=== PATIENT | male | born 1990 | race Caucasian/White ===

== ENCOUNTER 2020-06-10 11:31 | Day surgery (SDC) | payer BC, SELFPAY ==
[2020-05-07 09:37] VITALS: BMI 25.0
--- NOTE | 2020-05-08 09:22 | HO.ANESPROP2 ---
HPI - Anesthesia Eval Consult details Narrative: 30yo M for colonoscopy [facility] Past Medical History Medical History (Updated 05/12/20 @ 15:51 by Peace Rodriguez) Anxiety Depression H/O ventricular septal defect Murmur Surgical History Surgical History (Updated 05/07/20 @ 09:41 by Ana Quintero) History of esophagogastroduodenoscopy (EGD) Social History Social History Smoking Status: Never smoker Narrative Narrative: VSD = small membranous. No change from childhood per ECHO EGD with MAC 11/30/19 Meds Allergies Allergy/AdvReac Type Severity Reaction Status Date / Time No Known Allergies Allergy Verified 05/07/20 09:45 Home Medications Medication Instructions Recorded Confirmed Type citalopram 1 tab PO DAILY 05/07/20 05/07/20 History loratadine [Claritin] 10 mg PO DAILY 05/07/20 05/07/20 History Exam Exam Date and Time: May 08, 2020 0922 Height,Weight and Vital Signs: Height 6 ft Weight 83.915 kg Pertinent Lab Results Pertinent Lab Results: ECHO 04/2018 = LVEF 55-60%, small membranous VSD, no valve pathology Assessment and Plan Assessment Anesthesia Assessment: Chart Reviewed
--- NOTE | 2020-06-09 15:13 | HO.ANESPROP2 ---
Documented by User: Peace Rodriguez 06/09/20 15:15 HPI - Anesthesia Eval Consult details Narrative: 30yo M for [facility]oscopy [facility] Past Medical History Medical History (Updated 05/12/20 @ 15:51 by Peace Rodriguez) Anxiety Depression H/O ventricular septal defect Murmur Family History Family History (Updated 06/06/20 @ 09:13 by Stacey Cabrera, RMA, [employer]) Father Gastrointestinal ulcer Mother No problems noted. Son No problems noted. Surgical History Surgical History (Updated 05/07/20 @ 09:41 by Ana Quintero) History of esophagogastroduodenoscopy (EGD) Social History Social History Smoking Status: Never smoker Use of substances other than those prescribed or required for medical reasons: No Have you been hit, kicked, punched, or otherwise hurt by someone within the past year? If so, by whom?: No Advance Directives: No (unknown) Advance Directives Information Provided: No Recently lost weight without trying: No Meds Allergies Allergy/AdvReac Type Severity Reaction Status Date / Time No Known Allergies Allergy Verified 06/06/20 09:11 Home Medications Medication Instructions Recorded Confirmed Type citalopram 1 tab PO DAILY 05/07/20 05/07/20 History loratadine [Claritin] 10 mg PO DAILY 05/07/20 05/07/20 History Exam Exam Date and Time: June 09, 2020 1513 Height,Weight and Vital Signs: Height 6 ft Weight 83.915 kg Pertinent Lab Results Pertinent Lab Results: Laboratory Tests 04/22/20 04/22/20 08:45 08:45 WBC 4.2 L Hgb 15.1 Hct 44.9 Plt Count 308 Sodium 140 Potassium 4.7 Chloride 104 BUN 17 H Creatinine 1.08 Assessment and Plan Assessment Anesthesia Assessment: Chart Reviewed Documented by User: Vinod Gardner 06/10/20 12:00 [facility] Past Medical History Medical History (Updated 05/12/20 @ 15:51 by Peace Rodriguez) Anxiety Depression H/O ventricular septal defect Murmur Family History Family History (Updated 06/06/20 @ 09:13 by Stacey Cabrera, RMA, [employer]) Father Gastrointestinal ulcer Mother No problems noted. Son No problems noted. Surgical History Surgical History (Updated 05/07/20 @ 09:41 by Ana Quintero) History of esophagogastroduodenoscopy (EGD) Social History Social History Smoking Status: Never smoker Use of substances other than those prescribed or required for medical reasons: No Have you been hit, kicked, punched, or otherwise hurt by someone within the past year? If so, by whom?: No Advance Directives: No (unknown) Advance Directives Information Provided: No Recently lost weight without trying: No Meds Allergies Allergy/AdvReac Type Severity Reaction Status Date / Time No Known Allergies Allergy Verified 06/06/20 09:11 Home Medications Medication Instructions Recorded Confirmed Type citalopram 1 tab PO DAILY 05/07/20 05/07/20 History loratadine [Claritin] 10 mg PO DAILY 05/07/20 05/07/20 History Exam Airway Mallampati Class: II TM Dist: >3cm Neck ROM: Full Loose/Missing/Broken Teeth: No Heart: [id number] Lungs: ct b/l Assessment and Plan Assessment Anesthesia Assessment: Anesthesia Plan Discussed, PAT Visit and Chart Reviewed Final Anesthetic Review NPO: Yes ASA Class: II Final Preanesthetic Review: No Changes in Pt Med Stat, Meds/Allgs Chart Reviewed, Consent Obtained/Reviewed and Anes Risks/Benef Reviewed Patient Risk: Low Procedure Risk: Low Assessment/Block/Sedation in SS: Assess/Block/Sedation- Anesthetic Plan Anesthetic Plan: MAC: Disposition: Standard PACU
[2020-06-10 11:53] VITALS: BP 121/72; PULSE 70; RESP 20; TEMP 36.7; O2SAT 98; BMI 25.1
--- NOTE | 2020-06-10 11:55 | MHC.SHP ---
Pre-Procedural Eval Section A The patient is an INPATIENT: No The History & Physical has been completed within 30 days and I have reviewed it.: No Section B Chief Complaint: chronic diarrhea Details of Present Illness: diarrhea alternating with constipation Relevant Family History (Specify if Yes): No Relevant Social History: None Present Medications: see Short Stay Collaborative assessment Medical History: Significant History ( VSD. GERD. Depression. Anxiety. Uvula swelling. Seasonal allergies. ) History of Previous Operations: Relevant previous surgery/procedure and date(s) (EGD in 11/25) Allergies: Allergies Allergy/AdvReac Type Severity Reaction Status Date / Time No Known Allergies Allergy Verified 06/06/20 09:11 Review of Systems Sugical H&P ROS: Negative: Constitution, Cardiovascular and Respiratory and Yes, Specify: Gastrointestinal (diarrhea and constipation) Exam Surgical H&P Exam: Normal: Heart, Normal: Lungs, Normal: Extremities and Normal: Abdomen Plan Diagnosis/Plan: Unchanged Patient has been examined and remains a candidate for the planned procedure
[2020-06-10] MEDS: Lactated Ringers 1,000 ML 100 ML IVCONT (12:05)
[2020-06-10 12:48] VITALS: BP 99/55; PULSE 75; RESP 12; TEMP 36.4; O2SAT 97
[2020-06-10 13:03] VITALS: BP 99/54; PULSE 71; RESP 16; O2SAT 95
[2020-06-10 13:18] VITALS: BP 101/59; PULSE 64; RESP 16; O2SAT 97
[2020-06-10 13:33] VITALS: BP 104/62; PULSE 63; RESP 16; O2SAT 97
--- NOTE | 2020-06-10 14:07 | HO.POSTANES ---
Post Anesthesia Evaluation Post Anesthesia Evaluation Vital Signs: Vital Signs Temp Pulse Resp BP Pulse Ox 06/10/20 13:33 97.6 F 63 16 104/62 97 06/10/20 13:18 64 16 101/59 L 97 06/10/20 13:03 71 16 99/54 L 95 06/10/20 12:48 97.6 F 75 12 99/55 L 97 06/10/20 11:53 98.1 F 70 20 121/72 98 Anesthesia: Monitored Mental Status: Awake Pain Control: Satisfactory Nausea/Vomiting: None Hydration: Adequate Anesthesia-Related Issues: No Anes. Related Issues
--- NOTE | 2020-06-10 17:48 | W.PM.OPN ---
Operative Note Operative Note Narrative: Date of procedure: 06/10/20 Post-op diagnosis: other (Diverticulosis, hemorrhoids) Procedure: COLONOSCOPY TILL CECUM WITH BIOPSIES Consent: Indications for the procedure and potential complications of bleeding, perforation, reaction to medications and missed diagnosis were discussed with the patient and informed consent was obtained. Instrument: Olympus PCF H 190 L variable stiffness pediatric colonoscope Monitoring: Vital signs and clinical assessment, intermittent blood pressure monitoring, continuous EKG monitoring, Pulse oximetry and Carbon Dioxide monitoring were done throughout the procedure. Colon withdrawl time was 22 minutes. Procedure: The patient was placed in the left lateral decubitis position and pre-procedure medications were administered. After a digital rectal examination of the ano-rectum, the video colonoscope was inserted into the rectum and advanced through the colon to the cecum. The colonoscope was slowly withdrawn in a retrograde panoramic fashion and the colon mucosa was carefully examined including a retroflexed view of the rectum. Findings and interventions are described below. Procedure Difficulty: Without difficulty Findings: Terminal Ileum: Distal 15 cms was examined and appeared normal - biopsies were obtained. Cecum: Normal Ascending Colon: Normal Transverse Colon: Normal Descending Colon: Normal Sigmoid Colon: Mild diverticulosis Rectum: Normal Ano-rectum: Small internal hemorrhoids Colon preparation: Excellent Impression and Post Procedure Diagnosis Colonoscopy Findings: Normal TI - random biopsies obtained. No polyps were detected. Random biopsies were obtained from the colon. Mild diverticulosis seen in the sigmoid colon Small hemorrhoids on retroflexed exam. Plan: Await pathology results Patient has a FU appt on 07/01/20 in the [facility] with Abilio Richards M.D. (pt reports he stopped taking Dicyclomine since it was causing loose stools and not taking fibre supplement since it was not helpful) Repeat Colonoscopy in 15 years if colon biopsies are normal Above findings were reviewed with the patient and a handout on diverticulosis was given in the discharge area Surgeon: Abilio Richards MD Anesthesia: MAC (Lupe Morrissey CRNA.) [employer] Counselor: Brett Sandoval Estimated blood loss (mL): 0 Pathology: other (A. TI, B. Random colon biopsies) Condition: stable Disposition: PACU
== END 2020-06-10 14:38 | disposition home or self-care (01) ==
PROVIDERS: PCP Internal Medicine; Visit Provider Internal Medicine Gastroenterology
PROC: 0DJD8ZZ Inspection of Lower Intestinal Tract, Via Natural or Artificial Opening Endoscopic (ICD-10-PCS; CPT 45378; principal; 2020-06-10 12:30)
DX: R19.7 Diarrhea, unspecified (principal); K59.00 Constipation, unspecified; K57.30 Diverticulosis of large intestine without perforation or abscess without bleeding; K64.8 Other hemorrhoids; F32.9 Major depressive disorder, single episode, unspecified; Z79.899 Other long term (current) drug therapy
CPT/HCPCS: 45380; 88305

== ENCOUNTER → 2020-07-08 08:35 | Outpatient (BNVA) | payer BC, SELFPAY | PROVIDERS: PCP Internal Medicine; Visit Provider Internal Medicine Gastroenterology | DX: Z76.89 Persons encountering health services in other specified circumstances (principal) ==

== ENCOUNTER → 2020-09-16 08:19 | Outpatient (BNVA) | payer SELFPAY | PROVIDERS: PCP Internal Medicine; Visit Provider Physician Assistant Medical | DX: Z02.79 Encounter for issue of other medical certificate (principal) ==

== ENCOUNTER → 2022-09-10 08:10 | Outpatient (BNVA) | payer SELFPAY | PROVIDERS: PCP Internal Medicine; Visit Provider Internal Medicine | DX: Z02.79 Encounter for issue of other medical certificate (principal) ==

== ENCOUNTER 2024-03-21 17:28 | Emergency (ER) | payer OTHER, SELFPAY ==
--- NOTE | ~2024-03-21 | XR_ITS ---
EXAMINATION: XR HAND/WRIST, RIGHT CLINICAL INFORMATION: Pain COMPARISON: None TECHNIQUE: PA, lateral, and oblique views of the right hand and wrist. FINDINGS: The bones and soft tissues are normal. No fracture. Alignment is anatomic. Joint spaces are maintained. No erosions or soft tissue calcifications. XR/XR hand wrist RT IMPRESSION: No displaced fracture.
[2024-03-21 17:30] VITALS: BP 147/93; PULSE 90; RESP 16; TEMP 36.9; O2SAT 98; BMI 26.5
--- NOTE | 2024-03-21 17:31 | ED.GENADULT ---
[facility] - General Adult General Chief complaint: Extremity Injury, Upper Stated complaint: R wrist pain Time Seen by Provider: 03/21/24 19:38 Source: patient and RN notes reviewed Mode of arrival: ambulatory Limitations: no limitations History of Present Illness ED Provider: Joan Burt PA-C [facility] narrative: This is a 34-year-old male, with no known medical problems, who presents emergency department with complaints of right wrist pain started yesterday. Patient states that he had achiness over the last 2 days however states that today his pain worsened significantly. He states that the pain worsens with movement and with palpation. He denies any injury or trauma to the area. He states that he is a very active individual, and often times is to a lots of work around the house. He also states that he does play video games. He denies history of similar symptoms in the past. He endorses some nausea secondary to the pain. He has not taken any medications to treat his pain. He reports that his right pinky is numb. No chest pain, shortness breath, abdominal pain. No history of similar symptoms in the past. No other complaints or concerns at this time. MD complaint: Right wrist pain Onset (ago): day(s) Radiation: non-radiation Quality: aching Pain Consistency: constant Relieving factors: none Exacerbating factors: movement Associated symptoms: nausea/vomiting Treatments prior to arrival: none Related Data Home Medications ?Medication ?Instructions ?Recorded ?Confirmed fexofenadine 180 mg tablet 180 mg PO DAILY 04/28/21 04/28/21 (Liane Allergy) Previous Rx's ?Medication ?Instructions ?Recorded citalopram 40 mg tablet 40 mg PO DAILY #90 tabs 05/25/22 Allergies Allergy/AdvReac Type Severity Reaction Status Date / Time No Known Allergies Allergy Verified 03/21/24 17:32 Review of Systems Review of Systems: Yes all other systems are reviewed and are negative Constitutional: Constitutional: Reports as per [facility] Past Medical History Medical History Annual physical exam Anxiety Depression H/O ventricular septal defect Murmur Surgical History History of colonoscopy History of esophagogastroduodenoscopy (EGD) Family History Family History Father Gastrointestinal ulcer Mother No problems noted. Son No problems noted. Social History Social History Housing: House Alcohol intake: current Alcohol intake frequency: a few times a week Alcohol type: beer Patient Tobacco Use Status: Former Tobacco user Years Smoked: 8 yrs Advance Directives: No Advance Directives Information Provided: No Current occupational status: employed Physical Exam ED Vital Signs: Vital Signs - 24 hr 03/21/24 17:30 03/21/24 20:10 Temperature 98.4 F 97.4 F Pulse Rate 90 84 Respiratory Rate 16 16 Blood Pressure 147/93 H 123/82 Pulse Oximetry 98 96 Oxygen Delivery Method Room Air Room Air BMI result Body Mass Index 26.5 Const General: cooperative, comfortable and no acute distress Orientation/consciousness: patient oriented x3 Limitations: no limitations HENMT Head: Yes normal to inspection, Yes normocephalic and Yes atraumatic Ears: hearing grossly normal bilaterally General nose exam: Normal external nose present Face and sinus: Yes normal facial exam Mouth: Normal oral and palatal mucosa present, oropharynx normal and moist mucous membranes Throat: Yes posterior oropharynx normal Eyes General: appearance normal, both eyes and all related structures Eyelids: Yes eyelids normal Conjunctivae: conjunctivae normal Sclerae: sclerae normal Pupils: Equal, round and reactive pupils present EOM: EOMs intact bilaterally Neck Neck: Yes normal visual inspection, Yes full ROM and Yes no lymphadenopathy Lymphatic: no lymphadenopathy noted Chest Chest palpation & inspection: normal inspection of the chest Resp Effort & Inspection: normal respiratory effort and able to speak in complete sentences Auscultation: clear to auscultation bilaterally, no crackles, no rales, no rhonchi and no wheezes Cardio Rate: regular rate Rhythm: regular rhythm Heart sounds: S1 normal heart sound present and S2 normal heart sound present GI Inspection: Yes normal to inspection Skin General skin exam: no rashes or lesions noted Trauma: no lacerations or abrasions Wounds: no wounds Neuro General: patient oriented x3 and moves all extremities Cranial nerves: Yes Equal, round and reactive pupils present Extrem Other: Right wrist with no bony deformity or swelling, no overlying erythema or edema. Patient has tenderness palpation along the ulnar aspect. Negative Hema test, positive prayer test, pain with flexion, no pain with extension. General: Yes normal to inspection Right upper extremity: normal to inspection Left upper extremity: normal to inspection Right lower extremity: normal to inspection Left lower extremity: normal to inspection Course Course Course Narrative: This is an RME done by MADAN Pritchett: Additional HPI, ROS, PE not included below will be deferred to primary provider. 34 yoa M otherwise healthy presenting to the ED for right wrist pain that started yesterday but progressively worsened over 2 days. Rates the pain a /10. Tried topical icey hot without significant relief. w/o trauma, or fall. Reports always working in the yard. Decided to come in to the ED because the pain was unbearable. Denies fevers, abdominal pain, shortness of breath, chest pain, dizziness, and falls. Appearance: Alert.? Oriented X3.? No acute cardiopulmonary distress distress.? Head: Normocephalic, atraumatic, no step-offs or deformities Neck: Normal inspection.? Neck supple.? CVS: Pulses normal.? Respiratory: No respiratory distress.?? Skin: ? Normal skin color. Extremities: 5/5 strength to bilateral upper and lower extremities. Positive tinels sign of wrist and cubital tunnel Neuro: Oriented X 3.? No motor deficit.? No sensory deficit. Medications Administered Discontinued Medications Generic Name Dose Route Start Last Admin Trade Name Timq PRN Reason Stop Dose Admin Ketorolac Tromethamine 30 mg 03/21/24 20:25 03/21/24 20:31 Ketorolac Tromethamine 30 Mg/Ml Vial IM 03/21/24 20:26 30 mg ONCE ONE Administration Ondansetron HCl 4 mg 03/21/24 20:25 03/21/24 20:30 Ondansetron Odt 4 Mg Tab.Rapdis TRANSLINGU 03/21/24 20:26 4 mg ONCE ONE Administration Medical Decision Making Medical Decision Making MDM Narrative: This is a 34-year-old male who presents emergency department with complaints of right wrist pain for the last 2 days. Worsens with extension. Denies any known trauma or injury, he plays video games, and was doing yard work this week. Vital signs within normal limits. Labs were performed, no leukocytosis, chemistry within normal limits. Slightly elevated alk phos, however liver transaminases within normal limits. Abdomen is soft and nontender. He does endorse some nausea which he attributes to his pain he is having in his wrist. EKG normal sinus rhythm. X-ray normal. Symptoms likely inflammatory process, possible carpal tunnel like syndrome. Will treat with anti-inflammatories, given orthopedic follow-up. Given return precautions. He understands and agrees with plan. He is feeling better after receiving Toradol. Differential Diagnosis Differential Diagnoses: The differential diagnosis associated with the presentation includes Tendonitis, carpal tunnel, tenosynovitis, gout Lab Data [facility] [place] Lab Attestation statement: I reviewed the patient's lab results. See [facility] [place] 03/21/24 17:45 03/21/24 17:45 Labs: Lab Results 03/21/24 Range/Units 17:45 WBC 7.4 (4.8-10.8) X10*3/uL RBC 5.29 (4.60-5.80) X10*6/uL Hgb 15.1 (14.0-18.0) g/dl Hct 44.3 (42.0-52.0) % MCV 83.7 (80.0-98.0) fL MCH 28.5 (27.0-33.0) pg MCHC 34.1 (31.0-36.0) g/dl RDW 12.8 (11.0-16.0) % Plt Count 388 (160-400) X10*3/uL MPV 8.8 L (9.4-12.4) fL Immature Gran % (Auto) 0.4 (0.0-0.4) % Neut % (Auto) 63.0 (45-73) % Lymph % (Auto) 22.4 (20-40) % Cuming % (Auto) 9.2 (2-11) % Eos % (Auto) 4.3 H (0-4) % Baso % (Auto) 0.7 (0-2) % Lymph # (Auto) 1.7 (1.2-4.9) X10*3/uL Cuming # (Auto) 0.7 (0.1-1.2) X10*3/uL Eos # (Auto) 0.3 (0.0-0.4) X10*3/uL Baso # (Auto) 0.1 (0.0-0.2) X10*3/uL Abs Immat Gran (auto) 0.03 (0.00-0.03) X10*3/uL Absolute Neuts (auto) 4.6 (2.0-8.3) x10*3/uL Absolute Nucleated RBC 0.000 (0.0-0.012) X10*3/uL Nucleated RBC % (auto) 0.0 (0.0-0.2) /100WBC Sodium 141 (135-145) mmol/L Potassium 4.1 (3.3-5.1) mmol/L Chloride 105 (96-108) mmol/L Carbon Dioxide 27 (22-29) mmol/L Anion Gap 13 (12-20) BUN 17 H (9-16) mg/dL Creatinine 0.89 (0.5-1.4) mg/dL Estim Creat Clear Calc 120.7 Estimated GFR > 60 Random Glucose 117 H (60-115) mg/dL Calcium 9.7 (8.4-10.2) mg/dL Total Bilirubin 0.2 (0.0-1.0) mg/dL AST 16 (5-37) U/L ALT 28 (0-40) U/L Alkaline Phosphatase 120 H (39-117) U/L Troponin I High Sens < 2.7 (<3.5-35.0) ng/L Total Protein 7.7 (6.5-8.0) g/dL Albumin 4.3 (3.5-5.0) g/dL Radiology Impression Discussion of test interpretation with radiology: I have reviewed the radiologist's reading. Radiologist Impression: XR/XR hand wrist RT IMPRESSION: No displaced fracture. Dictated By: En Zaman MD Discharge Plan Discharge Clinical Impression: Wrist pain Patient Disposition: Still a Patient Instructions: Arthralgia (ED), Wrist Injury (ED), R.I.C.E. Treatment (ED) Additional Instructions: You were seen in the emergency department due to wrist pain. Your labs are reassuring. You likely have inflammation that is causing you to have pain Please use wrist splint as directed. Rest, ice, elevate. Take ibuprofen or Tylenol as needed for pain. Gentle range of motion, stretching can also provide you with some relief. I also am recommending you follow-up with a PCP. I am also giving you a referral to Orthopedics should your symptoms persist. If any new or worsening symptoms occur including but not limited to severe abdominal pain, chest pain, inability to move your wrist, redness, fevers, please return for re-evaluation Prescriptions: No Action citalopram 40 mg tablet 40 mg PO DAILY Qty: 90 3RF fexofenadine [Liane Allergy] 180 mg tablet 180 mg PO DAILY Print Language: Japanese
--- NOTE | 2024-03-21 17:32 | ECG_ITS ---
Test Reason : RUE PAIN Blood Pressure : / mmHG Vent. Rate : 084 BPM Atrial Rate : 084 BPM P-R Int : 150 ms QRS Dur : 114 ms QT Int : 356 ms P-R-T Axes : 018 -14 017 degrees QTc Int : 420 ms Normal sinus rhythm Minimal voltage criteria for LVH, may be normal variant ( R in aVL ) Borderline ECG When compared with ECG of 22-NOV-2012 11:50, Questionable change in QRS axis Referred By: Mikhail Pritchett Electronically Signed By:ALEX BAILEY
[2024-03-21 17:53] LABS: MANUAL DIFF FLAG NO
[2024-03-21 17:54] LABS: Basophils Absolute Auto 0.1 X10*3/uL (0.0-0.2); Basophils Percent Auto 0.7 % (0-2); Eosinophils Absolute Auto 0.3 X10*3/uL (0.0-0.4); Eosinophils Percent Auto 4.3 % (0-4); Hematocrit 44.3 % (42.0-52.0); Hemoglobin 15.1 g/dl (14.0-18.0); Imm Gran Abs Auto 0.03 X10*3/uL (0.00-0.03); Imm Gran Pct Auto 0.4 % (0.0-0.4); Lymphocytes Absolute Auto 1.7 X10*3/uL (1.2-4.9); Lymphocytes Percent Auto 22.4 % (20-40); Mean Corpuscular HGB Conc 34.1 g/dl (31.0-36.0); Mean Corpuscular Hemoglobin 28.5 pg (27.0-33.0); Mean Corpuscular Volume 83.7 fL (80.0-98.0); Mean Platelet Volume 8.8 fL (9.4-12.4); Monocytes Absolute Auto 0.7 X10*3/uL (0.1-1.2); Monocytes Percent Auto 9.2 % (2-11); Neutrophils Absolute Auto 4.6 x10*3/uL (2.0-8.3); Platelet Count 388 X10*3/uL (160-400); Red Blood Count 5.29 X10*6/uL (4.60-5.80); Red Cell Distribution Width 12.8 % (11.0-16.0); White Blood Count 7.4 X10*3/uL (4.8-10.8)
[2024-03-21 18:15] LABS: Alanine Aminotransferase 28 U/L (0-40); Albumin Level 4.3 g/dL (3.5-5.0); Alkaline Phosphatase 120 U/L (39-117); Anion Gap 13 (12-20); Aspartate Amino Transferase 16 U/L (5-37); Bilirubin Total 0.2 mg/dL (0.0-1.0); Blood Urea Nitrogen 17 mg/dL (9-16); Calcium 9.7 mg/dL (8.4-10.2); Carbon Dioxide 27 mmol/L (22-29); Chloride 105 mmol/L (96-108); Creatinine Clr Calc Pharmacy 120.7; Estimated Glomerular Filt Rate > 60; Glucose Random 117 mg/dL (60-115); Potassium 4.1 mmol/L (3.3-5.1); Sodium 141 mmol/L (135-145); Total Protein 7.7 g/dL (6.5-8.0)
[2024-03-21 18:23] LABS: Troponin-I High Sensitivity < 2.7 ng/L (<3.5-35.0)
[2024-03-21 20:10] VITALS: BP 123/82; PULSE 84; RESP 16; TEMP 36.3; O2SAT 96
[2024-03-21] MEDS: Ondansetron ODT 4 MG TAB.RAPDIS TRANSLINGU (20:30)
[2024-03-21] MEDS: Ketorolac Tromethamine 30 MG/ML VIAL IM (20:31)
--- NOTE | 2024-03-21 21:11 | PC.NURSE ---
Right splint applied per provider Tin Burt. pt tolerated well.
[2024-03-21 21:45] VITALS: BP 118/78; PULSE 78; RESP 16; TEMP 36.7; O2SAT 97
== END 2024-03-21 21:47 | disposition still patient (30) ==
PROVIDERS: Physician Assistant; Emergency Provider Internal Medicine
DX: M25.531 Pain in right wrist (principal); M79.641 Pain in right hand; R94.31 Abnormal electrocardiogram [ECG] [EKG]; Z79.899 Other long term (current) drug therapy
CPT/HCPCS: 36415; 73110; 73130; 80053; 84484; 85025; 93005; 96372; 99284; J1885

== ENCOUNTER → 2024-08-31 08:34 | Outpatient (BNVA) | payer SELFPAY | PROVIDERS: Visit Provider Internal Medicine | DX: Z02.79 Encounter for issue of other medical certificate (principal) ==

== ENCOUNTER 2025-01-13 21:56 | Emergency (ER) | payer OTHER, SELFPAY ==
[2025-01-13 21:58] VITALS: BP 137/82; PULSE 108; RESP 20; TEMP 36.6; O2SAT 97; BMI 29.1
[2025-01-13 22:21] LABS: MANUAL DIFF FLAG NO
[2025-01-13 22:22] LABS: Basophils Percent Auto 0.4 % (0-2); Eosinophils Absolute Auto 0.5 X10*3/uL (0.0-0.4); Hematocrit 35.9 % (42.0-52.0); Hemoglobin 12.5 g/dl (14.0-18.0); Imm Gran Abs Auto 0.03 X10*3/uL (0.00-0.03); Imm Gran Pct Auto 0.3 % (0.0-0.4); Lymphocytes Absolute Auto 1.7 X10*3/uL (1.2-4.9); Lymphocytes Percent Auto 17.6 % (20-40); Mean Corpuscular HGB Conc 34.8 g/dl (31.0-36.0); Mean Corpuscular Hemoglobin 28.4 pg (27.0-33.0); Mean Corpuscular Volume 81.6 fL (80.0-98.0); Mean Platelet Volume 8.8 fL (9.4-12.4); Monocytes Absolute Auto 1.2 X10*3/uL (0.1-1.2); Monocytes Percent Auto 12.7 % (2-11); Platelet Count 358 X10*3/uL (160-400); Red Cell Distribution Width 13.3 % (11.0-16.0); White Blood Count 9.4 X10*3/uL (4.8-10.8)
[2025-01-13 22:37] LABS: Alanine Aminotransferase 37 U/L (0-40); Albumin Level 4.4 g/dL (3.5-5.0); Alkaline Phosphatase 122 U/L (39-117); Anion Gap 11 (12-20); Aspartate Amino Transferase 49 U/L (5-37); Bilirubin Total 0.4 mg/dL (0.0-1.0); Blood Urea Nitrogen 27 mg/dL (9-16); Calcium 9.1 mg/dL (8.4-10.2); Carbon Dioxide 22 mmol/L (22-29); Chloride 109 mmol/L (96-108); Estimated Glomerular Filt Rate > 60; Glucose Random 112 mg/dL (60-115); Potassium 3.6 mmol/L (3.3-5.1); Sodium 138 mmol/L (135-145); Total Protein 7.1 g/dL (6.5-8.0)
[2025-01-13 22:43] LABS: B Type Natriuretic Peptide 12 pg/mL (<100)
--- NOTE | 2025-01-13 23:23 | PC.NURSE ---
no answer from CHICHO at 22:45, and 23:18
--- NOTE | 2025-01-13 23:39 | PC.NURSE ---
no answer for a third time @ 23:40
== END 2025-01-13 23:52 | disposition left against medical advice (07) ==
LOC: HO.ED 23:49
PROVIDERS: Emergency Provider Emergency Medicine; PCP Internal Medicine
DX: M79.661 Pain in right lower leg (principal); Z53.21 Procedure and treatment not carried out due to patient leaving prior to being seen by health care provider
CPT/HCPCS: 36415; 80053; 83880; 85025; 99281